=== PATIENT | female | born 1955 | race African-American/Black ===

== ENCOUNTER 2016-12-09 08:39 | Emergency (ER) | payer OTHER ==
[~2016-12-09] VITALS: Ht 165.1 cm; Wt 70.3 kg
[~2016-12-09 08:39] MED LIST: ALBUTEROL SULF8.5 GM INH; AZITHROMYCIN250 MG ORAL; CYCLOBENZAPRINE10 MG ORAL; IBUPROFEN600 MG ORAL; NKM; NORCO 5-325 TA1 EACH ORAL; PROMETHAZINE-D118 ML ORAL
[2016-12-09 09:17] VITALS: BP 112/68
[2016-12-09] MEDS ORDERED: Ketorolac 60mg Inj IM ONE (09:45)
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
[2016-12-09] MEDS ORDERED: CYCLOBENZAPRINE10 MG ORAL (10:05)
[2016-12-09] MEDS ORDERED: IBUPROFEN600 MG ORAL (10:05)
[2016-12-09 10:30] VITALS: BP 112/68
== END 2016-12-09 20:35 | disposition home or self-care (01) ==
LOC: EMR 09:28
DX: S13.4XXA Sprain of ligaments of cervical spine, initial encounter (principal); V43.62XA Car passenger injured in collision with other type car in traffic accident, initial encounter; Y92.410 Unspecified street and highway as the place of occurrence of the external cause; J45.909 Unspecified asthma, uncomplicated; Z88.0 Allergy status to penicillin
CPT/HCPCS: 96372; 99283